=== PATIENT | male | born 1985 ===

== ENCOUNTER 2017-06-12 16:17 | Outpatient (CLI) | payer BC ==
--- NOTE | 2017-06-12 16:54 | Diagnostic Imaging Report ---
Indication: PAIN Technique: 3 views right foot Comparison: none Findings: There is hammertoe deformity of second through fifth digits. 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 No acute fractures. No dislocations. Impression: Negative
--- NOTE | 2017-06-12 16:55 | Diagnostic Imaging Report ---
Indication: PAIN Technique: 3 views left foot Comparison: none Findings: Normal bony alignment. No acute fractures. No dislocations. Joint spaces are preserved. Impression: Negative
--- NOTE | 2017-06-12 16:55 | Diagnostic Imaging Report ---
Indication: PAIN Technique: 3 views left foot Comparison: none Findings: Normal bony alignment. No acute fractures. No dislocations. Joint spaces are preserved. Impression: Negative
--- NOTE | 2017-06-12 16:55 | Diagnostic Imaging Report ---
Indication: PAIN Technique: 3 views left foot Comparison: none Findings: Normal bony alignment. No acute fractures. No dislocations. Joint spaces are preserved. Impression: Negative
== END 2017-06-12 18:17 | disposition home or self-care (01) ==
LOC: RAD 16:17
DX: M25.571 Pain in right ankle and joints of right foot (principal); M20.41 Other hammer toe(s) (acquired), right foot; M20.11 Hallux valgus (acquired), right foot